=== PATIENT | female | born 1945 | race Caucasian/White ===

== ENCOUNTER → 2017-02-11 | Outpatient (CLI) | payer MEDICARE ==
[~2017-02-11] MED LIST: CENTTAB9
[2017-02-11 12:53] LABS: FERRITIN 201 NG/ML (8-252); TRANSFERRIN IRON PROFILE 234 MG/DL (200-360)
[2017-02-11 14:56] LABS: HEPATITIS B SURFACE ANTIBODY 0 mIU/mL
[2017-02-12 23:54] LABS: IGA SERUM 307 mg/dL (81-463); TISSUE TRANSGLUTAMINASE AB IGG ND U/mL (())
[2017-02-13 15:51] LABS: ENDOMYSIAL AB TITER ND (<1:5); TISSUE TRANSGLUTAMINASE AB LESS THAN 1 U/mL (())
[2017-02-13 17:30] LABS: ANA SCREEN NEG (NEG)
[2017-02-13 23:52] LABS: MITOCHONDRIAL ABS LESS THAN 20.0 U (())
== END ==
LOC: PLAB 08:23
PROVIDERS: ATTEND Internal Medicine Gastroenterology
DX: R79.89 Other specified abnormal findings of blood chemistry (principal)
CPT/HCPCS: 36415; 82103; 82390; 82728; 82784; 83516; 83520; 83540; 83550; 86038; 86256; 86317

== ENCOUNTER → 2017-02-26 | Outpatient (CLI) | payer MEDICARE | LOC: PLAB 08:21 | PROVIDERS: ATTEND Internal Medicine Gastroenterology | DX: R93.3 Abnormal findings on diagnostic imaging of other parts of digestive tract (principal); K63.5 Polyp of colon; D12.5 Benign neoplasm of sigmoid colon; R10.32 Left lower quadrant pain; R79.89 Other specified abnormal findings of blood chemistry; K21.0 Gastro-esophageal reflux disease with esophagitis; R13.10 Dysphagia, unspecified; K20.9 Esophagitis, unspecified; R19.8 Other specified symptoms and signs involving the digestive system and abdomen; K57.31 Diverticulosis of large intestine without perforation or abscess with bleeding; J02.9 Acute pharyngitis, unspecified; R10.9 Unspecified abdominal pain; R11.10 Vomiting, unspecified; Z86.010 Personal history of colon polyps; Z80.0 Family history of malignant neoplasm of digestive organs | CPT/HCPCS: 36415; 80074; 82947; 86708 ==

== ENCOUNTER → 2017-04-03 | Outpatient (CLI) | payer MEDICARE | LOC: PLAB 10:58 | PROVIDERS: ATTEND Internal Medicine Gastroenterology | DX: E88.01 Alpha-1-antitrypsin deficiency (principal) | CPT/HCPCS: 36415; 82103 ==

== ENCOUNTER → 2017-04-15 | Outpatient (CLI) | payer MEDICARE | LOC: PLAB 10:30 | PROVIDERS: ATTEND Internal Medicine Gastroenterology | DX: Z01.812 Encounter for preprocedural laboratory examination (principal); Z01.818 Encounter for other preprocedural examination | CPT/HCPCS: 36415; 82565; 84520 ==

== ENCOUNTER → 2017-05-15 | Outpatient (CLI) | payer MEDICARE | LOC: PLAB 10:57 | PROVIDERS: ATTEND Internal Medicine Gastroenterology | DX: E88.01 Alpha-1-antitrypsin deficiency (principal) | CPT/HCPCS: 82103; 82104 ==

== ENCOUNTER → 2017-06-25 | Outpatient (CLI) | payer MEDICARE ==
[2017-06-25 11:42] LABS: FREE T3 3.11 PG/ML (2.18-3.98); FREE T4 0.97 NG/DL (0.76-1.46)
== END ==
LOC: PLAB 09:00
PROVIDERS: ATTEND Internal Medicine Endocrinology, Diabetes & Metabolism
DX: E03.9 Hypothyroidism, unspecified (principal); E04.1 Nontoxic single thyroid nodule
CPT/HCPCS: 36415; 82533; 82607; 84439; 84443; 84481

== ENCOUNTER → 2018-01-16 | Outpatient (CLI) | payer MEDICARE ==
[2018-01-16 13:12] LABS: ALBUMIN 4.3 GM/DL (3.4-5.0); AST (GOT) 25 U/L (15-37); BICARBONATE 28.9 MEQ/L (21.0-32.0); BLOOD UREA NITROGEN 13 MG/DL (7-18); CALCIUM 9.4 MG/DL (8.5-10.1); CHLORIDE 104 MEQ/L (98-107); CREATININE 0.73 MG/DL (0.50-1.00); GLOMERULAR FILTRATION RATE 78 ML/MIN (>89); GLUCOSE,FASTING 98 MG/DL (74-99); SODIUM (NA) 141 MEQ/L (136-145)
[2018-01-16 13:23] LABS: ALKALINE PHOSPHATASE 85 U/L (45-117); ALT (GPT) 40 U/L (10-53); TOTAL BILIRUBIN ADULT 0.8 MG/DL (0.2-1.0); TOTAL PROTEIN 8.2 GM/DL (6.4-8.2)
[2018-01-16 17:00] LABS: HEMOGLOBIN A1C 5.8 % (4.3-6.0)
== END ==
LOC: PLAB 09:06
DX: E03.9 Hypothyroidism, unspecified (principal); R73.01 Impaired fasting glucose
CPT/HCPCS: 36415; 80053; 82043; 83036; 84439; 84443